=== PATIENT | female | born 1980 | race Caucasian/White ===

== ENCOUNTER 2017-01-20 17:25 | Emergency (ER) | payer BC, OTHER ==
[~2017-01-20] VITALS: Ht 170.2 cm; Wt 72.0 kg
[~2017-01-20 17:25] MED LIST: AMBIEN10 MG PO; Ambien PO; CELEBREX200 MG PO; CIPRO500 MG PO; CLARINEX-D 121 EACH PO; CLARITIN D PO; CLONIDINE HCL0.1 MG PO; CORTIZONE-1028 GM TP; Catapres PO; Catapres-TTS 1 TD; Chromagen, Feogen, M PO; DURAGESIC12 MCG TD; DURAGESIC25 MCG TD; FLEXERIL10 MG PO; HEPARIN SO5000 UNITS SC; HEPARIN SO5000 UNITS SQ; IBUPROFEN800 MG PO; KEFLEX500 MG PO; Lovenox SC; MACROBID100 MG PO; MAXALT5 MG PO; MOTRIN800 MG PO; Motrin PO; Natalcare Rx,Pramile PO; OXYCODONE HCL10 MG PO; OXYCODONE HCL5 MG PO; PROTONIX40 MG PO; Percocet 5/325,Endoc PO; Protonix PO; TYLENOL ARTHRI650 MG PO; TYLENOL WITH C1 EACH PO; Tylenol/Codeine #3 PO; VITAFOL-OB+DHA1 EACH PO; ZOFRAN4 MG PO
[2017-01-20] MEDS ORDERED: PEN-VEE K,VEET500 MG PO (19:22)
[2017-01-20] MEDS ORDERED: ULTRAM50 MG PO (19:22)
[2017-01-20 19:42] VITALS: BP 138/91
== END 2017-01-20 19:43 | disposition home or self-care (01) ==
LOC: EME 17:25
DX: K02.9 Dental caries, unspecified (principal); H92.01 Otalgia, right ear; J02.9 Acute pharyngitis, unspecified
CPT/HCPCS: 99281; 99284